=== PATIENT | male | born 1975 | race Caucasian/White ===

== ENCOUNTER 2017-09-13 16:55 | Emergency (ER) | payer BC ==
[~2017-09-13] VITALS: Ht 185.4 cm; Wt 118.0 kg
[~2017-09-13 16:55] MED LIST: ACET325S8 PO; CEPH500T PO; CHLO.12%30 SSP; CLIN1CAP6 PO; GLUCTAB PO; LISI-360 PO; LORTA5 PO
[2017-09-13 17:01] VITALS: BP 148/88; PULSE 79; RESP 16; TEMP 98.1; O2SAT 98
[2017-09-13] MEDS ORDERED: BP MED (19:17)
[2017-09-13] MEDS ORDERED: METF1000 PO (19:17)
--- NOTE | 2017-09-13 20:00 | PD ---
HPI Chief Complaint: Cold / Flu Symptoms Time Seen by Provider: 19:54 Travel History International Travel<30 days: No Contact w/Intl Traveler<30days: No Traveled to known affect area: No History of Present Illness HPI Patient comes to the emergency department complaining of sinus congestion over the past 2 days. Patient awoke today had some generalized body aches and a dry nonproductive cough. Patient denies any known fevers, nausea, vomiting, abdominal pain, chest pain, shortness of breath, or known sick contacts. Patient denies doing anything for this. Denies anything making symptoms better or worse. Denies sore throat. PFSH Past Medical History Autoimmune Disease: No Cardiovascular Problems: Yes High Cholesterol: Yes Chest Pain: Yes Diabetes: Yes Patient Takes Glucophage: Yes Diminished Hearing: No Endocrine: Yes Gastrointestinal Disorders: No Gout: Yes Genitourinary: No Hypertension: Yes Immune Disorder: No Musculoskeletal: No Neurologic: No Psychiatric: No Reproductive: No Respiratory: No Tetanus Vaccination: Unknown Past Surgical History Other Surgery: No Social History Alcohol Use: Yes Tobacco Use: No Substance Use: No Allergies-Medications (Allergen,Severity, Reaction): Coded Allergies: No Known Allergies (Verified Adverse Reaction, Unknown, 09/13/17) Reported Meds & Prescriptions Reported Meds & Active Scripts Active Reported [Bp Med] Metformin (Metformin HCl) 1,000 Mg Tab 1,000 Mg PO BIDPC Review of Systems Except as stated in HPI: all other systems reviewed are Neg Physical Exam Narrative GENERAL: Well-developed, overly nourished, in no acute distress, and non-ill appearing. SKIN: Focused skin assessment warm and dry. HEAD: Atraumatic. Normocephalic. EYES: Pupils equal and round. EOMI. No scleral icterus. No injection or drainage. ENT: No nasal bleeding or discharge. Mucous membranes pink and moist. Tympanic membranes pearly suarez bilaterally. Posterior pharynx nonerythematous without exudate. Uvula is midline. No tenderness to facial sinuses to palpation. NECK: Trachea midline. No cervical lymphadenopathy. Supple. No nuclear rigidity. CARDIOVASCULAR: Regular rate and rhythm. No murmur appreciated. RESPIRATORY: No accessory muscle use. No respiratory distress. Clear to auscultation. Breath sounds equal bilaterally. No coughing noted on exam. Patient speaking in full sentences without difficulty. MUSCULOSKELETAL: No obvious deformities. No clubbing. No cyanosis. No edema. Full range of motion. NEUROLOGICAL: Awake and alert. No obvious cranial nerve deficits. Motor grossly within normal limits. Normal speech. PSYCHIATRIC: Appropriate mood and affect; insight and judgment normal. Data Data Last Documented VS Vital Signs Date Time Temp Pulse Resp B/P (MAP) Pulse Ox O2 Delivery O2 Flow Rate FiO2 09/13/17 17:01 98.1 79 16 148/88 (108) 98 Orders Orders Influenzae A/B Antigen (09/13/17 19:17) Ed Discharge Order (09/13/17 20:01) MDM Medical Decision Making Medical Screen Exam Complete: Yes Emergency Medical Condition: Yes Interpretation(s) Date/Time Source Procedure Growth Status 09/13/17 19:38 Nasal Aspirate Influenza Types A,B Antigen (ROSITA) - Final NEGATIVE FOR FLU A AND B ANTIGEN.... Complete Differential Diagnosis Influenza, URI, sinusitis, viral syndrome Narrative Course Patients symptom complex of cough and congestion is consistent with viral URI. The patient is non-ill appearing and is in no respiratory distress and comfortable. The patient moves air well and oxygen saturations are normal. There is no clinical evidence to suggest pneumonia at this time. Plan of care and management were discussed with the patient who agreed with plan. The patient was instructed to follow up with their physician and instructed to return if worsens, progressively worsening shortness of breath or difficulty breathing, persistent fever, chest pains or discomfort, inability to keep medication or fluids down with or without vomiting, or as needed. Patient in no obvious distress upon re-evaluation. All pertinent laboratory result(s) discussed with patient. Any questions/concerns in reference to patient diagnosis/condition discussed and clarified prior to patient's discharge. Reinforced sheer importance of close follow up with patient's primary physician or primary care clinic. Instructed patient to return to ED immediately, if symptoms return/worsen. Patient showed understanding of above instructions. Further instructions and recommendations were detailed in discharge paperwork. Patient ambulated without difficulty out of ED at discharge. Diagnosis Primary Impression: Viral URI Patient Instructions: General Instructions, Upper Respiratory Infection (ED) Additional Instructions: Follow-up with your primary care physician in 3-5 days for reevaluation. Use [id number] cold and flu medication as needed for symptomatic relief. Follow instructions on the packaging. Drink plenty of non-caffeinated and nonalcoholic fluids. Return to the emergency department if symptoms get worse. Disposition: 01 DISCHARGE HOME Condition: Stable Kyle Nino Sep 13, 2017 20:00
== END 2017-09-13 20:36 | disposition home or self-care (01) ==
LOC: PHED 16:55 → PHEFT 20:36
DX: J06.9 Acute upper respiratory infection, unspecified (principal); I10 Essential (primary) hypertension; E78.00 Pure hypercholesterolemia, unspecified; E11.9 Type 2 diabetes mellitus without complications; M10.9 Gout, unspecified; Z79.84 Long term (current) use of oral hypoglycemic drugs
CPT/HCPCS: 87804; 99283

== ENCOUNTER 2017-11-01 14:19 | Emergency (ER) | payer BC ==
[~2017-11-01 14:19] MED LIST changes: -ACET325S8 PO; +BP MED; -CEPH500T PO; -CHLO.12%30 SSP; -CLIN1CAP6 PO; -GLUCTAB PO; -LISI-360 PO; -LORTA5 PO; +METF1000 PO
[2017-11-01 15:00] VITALS: BP 143/87; PULSE 92; RESP 14; TEMP 98; O2SAT 99
[2017-11-01] MEDS ORDERED: CHOLPOW65 (16:05)
[2017-11-01] MEDS ORDERED: LISI-515 PO (16:05)
[2017-11-01] MEDS ORDERED: SILVER NITR/POTASSIUM NITRATE APPLICATORS TOPICAL ONE (16:15)
[2017-11-01] MEDS ORDERED: LIDOCAINE 2%/EPINEPHrine 1:100,000 30ML MDV INFIL ONE (16:15)
[2017-11-01] MEDS ORDERED: LIDOCAINE 2%/EPINEPHrine 1:100,000 20ML MDV INFIL ONE (16:30)
--- NOTE | 2017-11-01 16:52 | PD ---
HPI Chief Complaint: Skin Problem Time Seen by Provider: 15:58 Travel History International Travel<30 days: No Contact w/Intl Traveler<30days: No Traveled to known affect area: No History of Present Illness HPI 42 year-old male presents to the emergency room for evaluation of bleeding wound to his left hand. Patient states he has had a bump to his thumb region for the past year and has never had any issues with. He saw his primary care physician about it and was told that it was benign. States today while working , he struck his hand against something and it began to bleed. He applied pressure but the bleeding was consistent. Patient states after an hour and a half, he was still bleeding so he came to the emergency room. Denies significant pain. No dizziness or weakness. He denies bleeding disorders. He is not on blood thinners. Does not drink daily alcohol. PFSH Past Medical History Autoimmune Disease: No Cardiovascular Problems: Yes High Cholesterol: Yes Chest Pain: Yes Diabetes: Yes Diminished Hearing: No Endocrine: Yes Gastrointestinal Disorders: No Gout: Yes Genitourinary: No Hypertension: Yes Immune Disorder: No Musculoskeletal: No Neurologic: No Psychiatric: No Reproductive: No Respiratory: No Past Surgical History Other Surgery: No Social History Alcohol Use: Yes Tobacco Use: No Substance Use: No Allergies-Medications (Allergen,Severity, Reaction): Coded Allergies: No Known Allergies (Verified Adverse Reaction, Unknown, 11/01/17) Reported Meds & Prescriptions Reported Meds & Active Scripts Active Reported Cholesterol 1 Pow Pow Lisinopril 20 Mg Tab 20 Mg PO DAILY [Bp Med] Metformin (Metformin HCl) 1,000 Mg Tab 1,000 Mg PO BIDPC Review of Systems Except as stated in HPI: all other systems reviewed are Neg Physical Exam Narrative GENERAL: Well-nourished, well-developed male in no acute distress. Afebrile. Ambulatory. SKIN: Focused skin assessment warm/dry. There is a 5 mm round varicose vein to the left thumb. The center of the wound is bleeding a continuous stream. It is not squirting. HEAD: Normocephalic. EYES: No scleral icterus. No injection or drainage. NECK: Supple, trachea midline. No JVD or lymphadenopathy. CARDIOVASCULAR: Regular rate and rhythm without murmurs, gallops, or rubs. RESPIRATORY: Breath sounds equal bilaterally. No accessory muscle use. MUSCULOSKELETAL: No cyanosis, or edema. Data Data Last Documented VS Vital Signs Date Time Temp Pulse Resp B/P (MAP) Pulse Ox O2 Delivery O2 Flow Rate FiO2 11/01/17 15:00 98.0 92 14 143/87 (105) 99 Orders Orders Lidocai-Epi 2%-1:100,000 Inj (Xylocaine- (11/01/17 16:15) Silver Nitrate Applicators (Silver Nitra (11/01/17 16:15) Lidocai-Epi 2%-1:100,000 Inj (Xylocaine- (11/01/17 16:30) Ed Discharge Order (11/01/17 16:52) [facility] Medical Decision Making Medical Screen Exam Complete: Yes Emergency Medical Condition: Yes Medical Record Reviewed: Yes Differential Diagnosis Bleeding wound, varicose veins, infection Narrative Course 42-year-old male presents to the emergency room for evaluation of a bleeding wound to his left hand that started bleeding 2 hours ago. Patient has had chronic lump on his hand but has never had any problems with it. He hit it against something at work and it began to bleed today. He could not get it to stop. He does not have any bleeding disorders and is not on any blood thinners. Patient appears to have a bleeding varicose vein. Lidocaine with epinephrine controlled the bleeding but a stitch was added to prevent it from worsening. Patient was discharged with wound care instructions and told to follow-up with a primary care physician or return for worsening symptoms. He understands and agrees to plan. Procedures Procedure Narrative LACERATION LOCATION: Left dorsal hand LENGTH:1 mm NUMBER OF STITCHES/CAMERON: 1 horizontal mattress REPAIR: The area of the laceration was prepped with Betadine and sterilely draped. The laceration was infiltrated with 1% lidocaine with epinephrine. The wound was copiously irrigated and explored without evidence of foreign body , tendon injury or neurovascular injury. The wound was closed using 5-0 Prolene. This was a single layer repair. A sterile dressing was applied. The patient was advised to keep the dressing clean and dry. Patient tolerated the procedure well. Diagnosis Primary Impression: Bleeding from wound Referrals: Primary Care Physician Additional Instructions: Keep wound clean and dry. Follow-up with a primary care physician. Return to the emergency room for worsening symptoms. Disposition: 01 DISCHARGE HOME Condition: Stable Brooke Brown Nov 01, 2017 16:52
== END 2017-11-01 17:04 | disposition home or self-care (01) ==
LOC: NEPK 14:19
DX: S61.412A Laceration without foreign body of left hand, initial encounter (principal); W22.8XXA Striking against or struck by other objects, initial encounter
CPT/HCPCS: 12001